=== PATIENT | male | born 1965 | race Two or more races ===

== ENCOUNTER 2020-07-05 20:11 | Emergency (ER) | payer OTHER ==
[~2020-07-05] VITALS: Ht 185.4 cm; Wt 68.0 kg
[2020-07-05 21:33] LABS: BILIRUBIN,URINE NEGATIVE (NEGATIVE); COLOR,URINE YELLOW (YELLOW); LEUKOCYTE ESTERASE ,URINE NEGATIVE (NEGATIVE); NITRITE, URINE NEGATIVE (NEGATIVE); PROTEIN,URINE NEGATIVE (NEGATIVE); UGLUCOSE NEGATIVE (NEGATIVE)
[2020-07-05 22:03] LABS: CALCIUM, SERUM 8.6 mg/dL (8.5-10.1); CARBON DIOXIDE 31 mmol/L (21-32); CHLORIDE 105 mmol/L (98-107); CREATININE 1.2 mg/dL (0.6-1.3); GLUCOSE 74 mg/dL (74-106); POTASSIUM 4.2 mmol/L (3.5-5.1); SODIUM SERUM 142 mmol/L (136-145); UREA NITROGEN, BLOOD 21 mg/dL (7-18)
[2020-07-05 22:08] LABS: ALANINE AMINOTRANSFERASE 29 U/L (12-78); ALBUMIN 3.6 g/dL (3.4-5.0); ALKALINE PHOSPHATASE 123 U/L (46-116); ASPARTATE AMINOTRANSFERASE 27 U/L (15-37); BILIRUBIN,DIRECT 0.1 mg/dL (0.0-0.2); BILIRUBIN,TOTAL 0.5 mg/dL (0.2-1.0); TOTAL PROTEIN, SERUM 7.4 g/dL (6.4-8.2)
[2020-07-05 22:09] LABS: ACETAMINOPHEN 0 ug/ml (10-30); ALCOHOL, BLOOD < 3 mg/dL (0-0)
[2020-07-05 22:11] LABS: BACTERIA,URINE Few /HPF (None Seen); MUCUS,URINE Few /LPF (None Seen); RBC,URINE 0-2 /HPF (0-2); SQUAMOUS EPITHELIAL CELL,UR Few /HPF (None Seen); URINE AMORPHOUS URATE Few /HPF (None Seen)
[2020-07-05 22:21] LABS: BASOPHILS % (AUTO) 0.3 % (0.0-2.0); EOSINOPHILS % (AUTO) 1.2 % (0.0-6.0); HEMATOCRIT 43 % (39-51); HEMOGLOBIN 13.9 g/dL (13.5-17.5); LYMPHOCYTES # (AUTO) 3.1 /CMM (0.8-4.8); LYMPHOCYTES % (AUTO) 32.7 % (20.0-44.0); MEAN CORPUSCULAR HGB CONC 33 g/dl (31.0-36.0); MEAN CORPUSCULAR VOLUME 96 fL (80-96); MONOCYTES % (AUTO) 10.2 % (2.0-12.0); NEUTROPHILS # (AUTO) 5.2 /CMM (1.8-8.9); NEUTROPHILS % (AUTO) 55.6 % (43.0-81.0); PLATELET COUNT (AUTO) 202 /CMM (150-450); RED BLOOD CELL COUNT(AUTO) 4.46 MIL/uL (4.5-6.0); WHITE BLOOD COUNT (AUTO) 9.4 K/uL (4.3-11.0)
[2020-07-06 04:16] VITALS: BP 125/73
== END 2020-07-06 04:17 | disposition home or self-care (01) ==
LOC: ER 20:34
DX: R45.851 Suicidal ideations (principal); R45.850 Homicidal ideations; Z59.0 Homelessness; I10 Essential (primary) hypertension; G40.909 Epilepsy, unspecified, not intractable, without status epilepticus; Z91.14 Patient's other noncompliance with medication regimen; F25.0 Schizoaffective disorder, bipolar type
CPT/HCPCS: 36415; 80048; 80076; 80299; 80307; 80320; 81001; 85025; 87086; 87426; 99285; C9803; G0480

== ENCOUNTER 2024-06-27 10:14 | Inpatient (IN) | payer MEDICAID, OTHER ==
[~2024-06-27] VITALS: Ht 180.3 cm; Wt 56.2 kg
[2024-06-27 10:46] LABS: HEMOGLOBIN 13.7 g/dL (13.5-17.5); WHITE BLOOD COUNT (AUTO) 15.8 K/uL (4.3-11.0)
[2024-06-27 10:56] LABS: SERUM AMMONIA 17 umol/L (11-32)
[2024-06-27 11:02] LABS: ALANINE AMINOTRANSFERASE 66 U/L (12-78); ALBUMIN 4.3 g/dL (3.4-5.0); ALKALINE PHOSPHATASE 118 U/L (46-116); ASPARTATE AMINOTRANSFERASE 58 U/L (15-37); BILIRUBIN,DIRECT 0.2 mg/dL (0.0-0.2); BILIRUBIN,TOTAL 0.5 mg/dL (0.2-1.0); CALCIUM, SERUM 9.9 mg/dL (8.5-10.1); CARBON DIOXIDE 26 mmol/L (21-32); CHLORIDE 106 mmol/L (98-107); CREATININE 1.2 mg/dL (0.6-1.3); GLUCOSE 80 mg/dL (74-106); POTASSIUM 4.4 mmol/L (3.5-5.1); SALICYLATE 4.9 mg/dL (2.8-20.0); SODIUM SERUM 140 mmol/L (136-145); TOTAL PROTEIN, SERUM 7.9 g/dL (6.4-8.2); UREA NITROGEN, BLOOD 23 mg/dL (7-18)
[2024-06-27 11:08] LABS: BASOPHILS % (AUTO) 0.3 % (0.0-2.0); HEMATOCRIT 41 % (39-51); LYMPHOCYTES # (AUTO) 0.8 K/uL (0.8-4.8); LYMPHOCYTES % (AUTO) 4.8 % (20.0-44.0); MEAN CORPUSCULAR HEMOGLOBIN 34 PG (26.0-33.0); MEAN CORPUSCULAR HGB CONC 33 g/dl (31.0-36.0); MEAN CORPUSCULAR VOLUME 101 fL (80-96); MONOCYTES # (AUTO) 1.4 K/uL (0.1-1.30); MONOCYTES % (AUTO) 8.9 % (2.0-12.0); NEUTROPHILS # (AUTO) 13.6 K/uL (1.8-8.9); PLATELET COUNT (AUTO) 153 K/uL (150-450); RED BLOOD CELL COUNT(AUTO) 4.08 MIL/uL (4.5-6.0); RED CELL DISTRIBUTION WIDTH 15.1 % (11.5-15.0)
[2024-06-27 11:15] LABS: INR 1.05 (0.91-1.10); PROTHROMBIN TIME 11.1 SECS (9.2-11.1)
[2024-06-27 11:23] LABS: LACTIC ACID 2.6 mmol/L (0.4-2.0)
[2024-06-27 11:27] LABS: ACETAMINOPHEN <10 ug/ml (10-30); ALCOHOL, BLOOD < 3 mg/dL (0-10)
[2024-06-27 11:48] LABS: APPEARANCE,URINE CLEAR (CLEAR); BILIRUBIN,URINE NEGATIVE (NEGATIVE); BLOOD, URINE NEGATIVE Ery/uL (NEGATIVE); COLOR,URINE YELLOW (YELLOW); KETONES,URINE NEGATIVE (NEGATIVE); LEUKOCYTE ESTERASE ,URINE NEGATIVE (NEGATIVE); NITRITE, URINE NEGATIVE (NEGATIVE); PROTEIN,URINE 2+ mg/dl (NEGATIVE); UGLUCOSE NEGATIVE (NEGATIVE); UROBILINOGEN,URINE 0.2 EU/dL (0.2)
[2024-06-27] MEDS: DEXTROSE 10% IN WATER 250 ML BAG IV ONE (11:57)
[2024-06-27 12:02] LABS: AMPHETAMINE, URINE NEGATIVE (NEGATIVE); BARBITURATE, URINE NEGATIVE (NEGATIVE); BENZODIAZEPINE, URINE NEGATIVE (NEGATIVE); COCCAINE, URINE NEGATIVE (NEGATIVE); OPIATE, URINE NEGATIVE (NEGATIVE); PHENCYCLIDINE SCREEN,URINE NEGATIVE (NEGATIVE)
[2024-06-27] MEDS: IV NS 0.9% 1,000 ML BAG IV ONE (13:04)
[2024-06-27] MEDS: CEFEPIME 1 GM in IV D5W 50 ML IV ONE (13:04)
[2024-06-27 13:09] LABS: CANNABINOID, URINE POSITIVE (NEGATIVE)
[2024-06-27] MEDS: VANCOMYCIN 1 GM in IV D5W 250 ML IV ONE (13:30)
[2024-06-27 14:52] LABS: ADD URINE CULTURE YES; BACTERIA,URINE 1+ /HPF (None Seen); RBC,URINE 0-2 /HPF (0-2); SQUAMOUS EPITHELIAL CELL,UR 0-2 /HPF (None Seen); WBC,URINE NONE SEEN /HPF (0-3)
[2024-06-27] MEDS ORDERED: MAG HYDROX/AL HYDROX/SIMETH 30 ML UDC PO PRN (15:00)
[2024-06-27] MEDS ORDERED: ENOXAPARIN SODIUM 40 MG/0.4 ML DISP.SYRIN SQ SCH (15:00)
[2024-06-27] MEDS ORDERED: ONDANSETRON HCL/PF 4 MG/2 ML VIAL IVP PRN (15:00)
[2024-06-27] MEDS ORDERED: Z GUARD REMEDY 4 OZ OINT TP PRN (15:00)
[2024-06-27] MEDS ORDERED: MAGNESIUM HYDROXIDE 30 ML UDC PO PRN (15:00)
[2024-06-27] MEDS: ENOXAPARIN SODIUM 60 MG/0.6 ML DISP.SYRIN SQ ONE (15:00)
[2024-06-27 16:00] VITALS: BP 111/61; TEMP 97.9; O2SAT 93
[2024-06-27] MEDS: IV 1/2NS 1000 ML 1,000 ML IV PRN (16:29)
[2024-06-27] MEDS: ASPIRIN EC 325 MG TABLET.DR PO ONE (16:48)
[2024-06-27] MEDS: CEFTRIAXONE 1 G in IV D5W 50 ML IV SCH (19:01)
[2024-06-27 20:00] VITALS: BP 118/86; TEMP 97.7; O2SAT 96
[2024-06-28] VITALS: BP 112/79; TEMP 97.9; O2SAT 96
[2024-06-28] MEDS ORDERED: CEFEPIME 2 GM in IV D5W 100 ML IV SCH (01:00)
[2024-06-28] MEDS: VANCOMYCIN 750 MG in IV D5W 250 ML IV SCH (01:58)
[2024-06-28] MEDS: ENOXAPARIN SODIUM 60 MG/0.6 ML DISP.SYRIN SQ SCH (03:03)
[2024-06-28 04:00] VITALS: BP 126/78; TEMP 98.2; O2SAT 100
[2024-06-28] MEDS: PANTOPRAZOLE 40 MG TABLET.DR PO SCH (07:21)
[2024-06-28 07:27] LABS: BASOPHILS % (AUTO) 0.2 % (0.0-2.0); HEMATOCRIT 35 % (39-51); HEMOGLOBIN 11.8 g/dL (13.5-17.5); LYMPHOCYTES # (AUTO) 1.9 K/uL (0.8-4.8); LYMPHOCYTES % (AUTO) 15.3 % (20.0-44.0); MEAN CORPUSCULAR HEMOGLOBIN 34 PG (26.0-33.0); MEAN CORPUSCULAR HGB CONC 34 g/dl (31.0-36.0); MEAN CORPUSCULAR VOLUME 100 fL (80-96); MONOCYTES # (AUTO) 0.9 K/uL (0.1-1.30); NEUTROPHILS # (AUTO) 9.9 K/uL (1.8-8.9); NEUTROPHILS % (AUTO) 77.5 % (43.0-81.0); PLATELET COUNT (AUTO) 113 K/uL (150-450); RED BLOOD CELL COUNT(AUTO) 3.45 MIL/uL (4.5-6.0); RED CELL DISTRIBUTION WIDTH 14.5 % (11.5-15.0); WHITE BLOOD COUNT (AUTO) 12.7 K/uL (4.3-11.0)
[2024-06-28 07:30] VITALS: BP 117/71; TEMP 97.5; O2SAT 96
[2024-06-28 07:38] LABS: CALCIUM, SERUM 8.8 mg/dL (8.5-10.1); CREATININE 0.9 mg/dL (0.6-1.3); MAGNESIUM 1.8 mg/dL (1.8-2.4); PHOSPHORUS 2.3 mg/dL (2.5-4.9); POTASSIUM 3.5 mmol/L (3.5-5.1)
[2024-06-28 08:04] LABS: THYROID STIMULATING HORMONE 1.76 uIU/mL (0.358-3.74)
[2024-06-28] MEDS: ASPIRIN 81 MG TAB.CHEW PO SCH (08:07)
[2024-06-28] MEDS: VANCOMYCIN 1 GM in IV D5W 250ml IV SCH (15:13)
[2024-06-28] MEDS: K PHOS NEUTRAL 250 MG TABLET PO ONE (15:13)
[2024-06-28 16:00] VITALS: BP 125/82; TEMP 98.2; O2SAT 100
[2024-06-28 21:01] VITALS: BP 133/84; TEMP 98.1; O2SAT 97
[2024-06-29 07:30] VITALS: BP 169/93; TEMP 98.1; O2SAT 99
[2024-06-29 07:57] LABS: BASOPHILS % (AUTO) 0.1 % (0.0-2.0); EOSINOPHILS % (AUTO) 0.1 % (0.0-6.0); HEMATOCRIT 39 % (39-51); LYMPHOCYTES # (AUTO) 1.6 K/uL (0.8-4.8); LYMPHOCYTES % (AUTO) 16.2 % (20.0-44.0); MEAN CORPUSCULAR HEMOGLOBIN 34 PG (26.0-33.0); MEAN CORPUSCULAR HGB CONC 34 g/dl (31.0-36.0); MEAN CORPUSCULAR VOLUME 100 fL (80-96); MONOCYTES # (AUTO) 0.8 K/uL (0.1-1.30); MONOCYTES % (AUTO) 7.8 % (2.0-12.0); NEUTROPHILS # (AUTO) 7.7 K/uL (1.8-8.9); NEUTROPHILS % (AUTO) 75.8 % (43.0-81.0); PLATELET COUNT (AUTO) 116 K/uL (150-450); RED BLOOD CELL COUNT(AUTO) 3.86 MIL/uL (4.5-6.0); RED CELL DISTRIBUTION WIDTH 14.4 % (11.5-15.0); WHITE BLOOD COUNT (AUTO) 10.1 K/uL (4.3-11.0)
[2024-06-29 08:05] LABS: CALCIUM, SERUM 8.9 mg/dL (8.5-10.1); CREATININE 0.9 mg/dL (0.6-1.3); MAGNESIUM 1.8 mg/dL (1.8-2.4); PHOSPHORUS 3.2 mg/dL (2.5-4.9); POTASSIUM 3.6 mmol/L (3.5-5.1)
[2024-06-29 15:44] VITALS: BP 164/90; TEMP 98.1; O2SAT 99
[2024-06-29 20:00] VITALS: BP 170/95; TEMP 99; O2SAT 98
[2024-06-29] MEDS: hydrALAZINE HCL IV 20 MG VIAL IV PRN (20:33)
[2024-06-29] MEDS: ZOLPIDEM TARTRATE 5 MG TABLET PO PRN (22:37)
[2024-06-30] VITALS: BP 135/90; TEMP 98.4; O2SAT 97
[2024-06-30 01:36] LABS: BASOPHILS % (AUTO) 0.3 % (0.0-2.0); HEMATOCRIT 38 % (39-51); HEMOGLOBIN 12.8 g/dL (13.5-17.5); LYMPHOCYTES % (AUTO) 8.4 % (20.0-44.0); MEAN CORPUSCULAR HEMOGLOBIN 34 PG (26.0-33.0); MEAN CORPUSCULAR HGB CONC 34 g/dl (31.0-36.0); MEAN CORPUSCULAR VOLUME 100 fL (80-96); MONOCYTES # (AUTO) 0.9 K/uL (0.1-1.30); MONOCYTES % (AUTO) 7.4 % (2.0-12.0); NEUTROPHILS # (AUTO) 10.4 K/uL (1.8-8.9); NEUTROPHILS % (AUTO) 83.9 % (43.0-81.0); PLATELET COUNT (AUTO) 132 K/uL (150-450); RED BLOOD CELL COUNT(AUTO) 3.81 MIL/uL (4.5-6.0); RED CELL DISTRIBUTION WIDTH 14.6 % (11.5-15.0); WHITE BLOOD COUNT (AUTO) 12.4 K/uL (4.3-11.0)
[2024-06-30 01:50] LABS: CALCIUM, SERUM 8.8 mg/dL (8.5-10.1); CREATININE 0.9 mg/dL (0.6-1.3); MAGNESIUM 1.7 mg/dL (1.8-2.4); PHOSPHORUS 3.4 mg/dL (2.5-4.9); POTASSIUM 3.6 mmol/L (3.5-5.1)
[2024-06-30 02:25] LABS: FOLIC ACID 4.7 ng/mL (>3.0)
[2024-06-30 05:00] VITALS: BP 145/80; TEMP 98.2; O2SAT 99
[2024-06-30] MEDS: ACETAMINOPHEN 325 MG TABLET PO PRN (05:07)
[2024-06-30] MEDS: ENSURE ENLIVE 237 ML LIQUID (VANILLA) PO SCH (08:16)
[2024-06-30] MEDS: METOPROLOL TARTRATE 50 MG TABLET PO SCH (09:44)
[2024-06-30] MEDS: MAGNESIUM OXIDE 400 MG TABLET PO ONE (10:45)
[2024-06-30] MEDS: LORAZEPAM INJ 2 MG/ML VIAL IM PRN (12:06)
[2024-06-30] MEDS: ENOXAPARIN SODIUM 40 MG/0.4 ML DISP.SYRIN SQ SCH (15:06)
[2024-06-30 16:00] VITALS: BP 165/94; TEMP 98.2; O2SAT 97
[2024-06-30 20:00] VITALS: BP 150/90; TEMP 97.5; O2SAT 95
[2024-07-01] VITALS: BP 138/84; TEMP 97.7; O2SAT 99
[2024-07-01 04:00] VITALS: BP 147/78; TEMP 98.1; O2SAT 98
[2024-07-01 07:32] LABS: BASOPHILS % (AUTO) 0.3 % (0.0-2.0); EOSINOPHILS % (AUTO) 0.1 % (0.0-6.0); HEMATOCRIT 33 % (39-51); HEMOGLOBIN 11.4 g/dL (13.5-17.5); LYMPHOCYTES # (AUTO) 2.5 K/uL (0.8-4.8); LYMPHOCYTES % (AUTO) 19.9 % (20.0-44.0); MEAN CORPUSCULAR HEMOGLOBIN 35 PG (26.0-33.0); MEAN CORPUSCULAR HGB CONC 35 g/dl (31.0-36.0); MEAN CORPUSCULAR VOLUME 100 fL (80-96); MONOCYTES # (AUTO) 1.2 K/uL (0.1-1.30); MONOCYTES % (AUTO) 9.5 % (2.0-12.0); NEUTROPHILS # (AUTO) 8.8 K/uL (1.8-8.9); NEUTROPHILS % (AUTO) 70.2 % (43.0-81.0); PLATELET COUNT (AUTO) 130 K/uL (150-450); RED BLOOD CELL COUNT(AUTO) 3.31 MIL/uL (4.5-6.0); RED CELL DISTRIBUTION WIDTH 13.8 % (11.5-15.0); WHITE BLOOD COUNT (AUTO) 12.6 K/uL (4.3-11.0)
[2024-07-01 08:12] LABS: CALCIUM, SERUM 9.3 mg/dL (8.5-10.1); CREATININE 0.7 mg/dL (0.6-1.3); PHOSPHORUS 3.3 mg/dL (2.5-4.9)
[2024-07-01] MEDS: VALSARTAN 80 MG TABLET PO SCH (09:30)
[2024-07-01] MEDS ORDERED: QUETIAPINE FUMARATE 25 MG TABLET PO PRN (10:30)
[2024-07-01] MEDS: LEVETIRACETAM (500MG) 500 MG in IV NS 0.9% 100 ML IV SCH (11:20)
[2024-07-01 12:00] VITALS: BP 152/98; TEMP 97.7; O2SAT 99
[2024-07-01 16:00] VITALS: BP 144/89; TEMP 97.3; O2SAT 96
[2024-07-01 20:00] VITALS: BP 150/90; TEMP 97.5; O2SAT 98
[2024-07-02] VITALS: BP 118/81; TEMP 97.5; O2SAT 97
[2024-07-02 04:00] VITALS: BP 136/87; TEMP 97.7; O2SAT 97
[2024-07-02 07:30] VITALS: BP 134/86; TEMP 98.2; O2SAT 100
[2024-07-02 07:33] LABS: BASOPHILS % (AUTO) 0.2 % (0.0-2.0); EOSINOPHILS # (AUTO) 0.1 K/uL (0.0-0.7); EOSINOPHILS % (AUTO) 0.6 % (0.0-6.0); HEMATOCRIT 30 % (39-51); HEMOGLOBIN 10.2 g/dL (13.5-17.5); LYMPHOCYTES # (AUTO) 2.2 K/uL (0.8-4.8); LYMPHOCYTES % (AUTO) 22.3 % (20.0-44.0); MEAN CORPUSCULAR HEMOGLOBIN 34 PG (26.0-33.0); MEAN CORPUSCULAR HGB CONC 34 g/dl (31.0-36.0); MEAN CORPUSCULAR VOLUME 100 fL (80-96); MONOCYTES # (AUTO) 0.9 K/uL (0.1-1.30); MONOCYTES % (AUTO) 9.2 % (2.0-12.0); NEUTROPHILS # (AUTO) 6.8 K/uL (1.8-8.9); NEUTROPHILS % (AUTO) 67.7 % (43.0-81.0); PLATELET COUNT (AUTO) 140 K/uL (150-450); RED BLOOD CELL COUNT(AUTO) 3.03 MIL/uL (4.5-6.0)
[2024-07-02 08:07] LABS: CALCIUM, SERUM 9.1 mg/dL (8.5-10.1); CREATININE 0.7 mg/dL (0.6-1.3)
[2024-07-02] MEDS: POTASSIUM CHLORIDE 20 MEQ TAB.PRT.SR PO ONE (10:28)
[2024-07-02 11:26] LABS: POTASSIUM 3.6 mmol/L (3.5-5.1)
[2024-07-02 16:00] VITALS: BP 140/79; TEMP 97.5; O2SAT 100
[2024-07-02 20:00] VITALS: BP 112/73; TEMP 98.2; O2SAT 96
[2024-07-03] VITALS: BP 104/71; TEMP 98.1; O2SAT 98
[2024-07-03 03:59] VITALS: BP 107/57; TEMP 98; O2SAT 98
[2024-07-03 04:00] VITALS: BP 107/57; TEMP 98; O2SAT 98
[2024-07-03 06:46] LABS: CALCIUM, SERUM 8.7 mg/dL (8.5-10.1); CREATININE 0.8 mg/dL (0.6-1.3); POTASSIUM 4.6 mmol/L (3.5-5.1)
[2024-07-03 06:52] LABS: BASOPHILS % (AUTO) 0.3 % (0.0-2.0); EOSINOPHILS # (AUTO) 0.1 K/uL (0.0-0.7); EOSINOPHILS % (AUTO) 1.6 % (0.0-6.0); HEMATOCRIT 29 % (39-51); HEMOGLOBIN 9.6 g/dL (13.5-17.5); LYMPHOCYTES # (AUTO) 1.8 K/uL (0.8-4.8); LYMPHOCYTES % (AUTO) 22.1 % (20.0-44.0); MEAN CORPUSCULAR HEMOGLOBIN 34 PG (26.0-33.0); MEAN CORPUSCULAR HGB CONC 34 g/dl (31.0-36.0); MEAN CORPUSCULAR VOLUME 101 fL (80-96); MONOCYTES # (AUTO) 0.9 K/uL (0.1-1.30); MONOCYTES % (AUTO) 10.9 % (2.0-12.0); NEUTROPHILS # (AUTO) 5.4 K/uL (1.8-8.9); NEUTROPHILS % (AUTO) 65.1 % (43.0-81.0); PLATELET COUNT (AUTO) 164 K/uL (150-450); RED BLOOD CELL COUNT(AUTO) 2.84 MIL/uL (4.5-6.0); RED CELL DISTRIBUTION WIDTH 14.2 % (11.5-15.0); WHITE BLOOD COUNT (AUTO) 8.4 K/uL (4.3-11.0)
[2024-07-03 08:37] VITALS: BP 109/67; TEMP 97.5; O2SAT 97
[2024-07-03] MEDS ORDERED: VALS80TA31 PO (08:54)
[2024-07-03] MEDS ORDERED: ACET325T53 PO (08:54)
[2024-07-03] MEDS ORDERED: METO50TA16 PO (08:54)
[2024-07-03] MEDS ORDERED: Quetiapine Fumarate PO (08:54)
[2024-07-03] MEDS ORDERED: LEVO500T90 PO (08:54)
[2024-07-03] MEDS ORDERED: ASPI-1169 PO (08:54)
[2024-07-03] MEDS ORDERED: LEVE500T9 PO (08:54)
[2024-07-03] MEDS: LEVETIRACETAM (250 MG) 250 MG TABLET PO SCH (10:00)
== END 2024-07-03 16:03 | disposition home health service (06) | DRG 53 ==
LOC: ER 10:20 → TELE 12:36
PROVIDERS: ADMIT Student in an Organized Health Care Education/Training Program; ATTEND Internal Medicine
DX: G40.909 Epilepsy, unspecified, not intractable, without status epilepticus (principal); I21.A1 Myocardial infarction type 2; G92.8 Other toxic encephalopathy; R64 Cachexia; F29 Unspecified psychosis not due to a substance or known physiological condition; E86.0 Dehydration; F20.9 Schizophrenia, unspecified; F31.9 Bipolar disorder, unspecified; F39 Unspecified mood [affective] disorder; Z68.1 Body mass index [BMI] 19.9 or less, adult
CPT/HCPCS: 36415; 70450-TC; 71045-TC; 80048-TC; 80061-TC; 80076-TC; 80202-TC; 81001; 82140-TC; 82607-TC; 82803-TC; 82962-TC; 83605-TC; 83735-TC; 83921; 84100-TC; 84425; 84443-TC; 84484-TC; 85025-TC; 85730-TC; 87040-TC; 87081-TC; 87086-TC; 92526; 92611-TC; 93307-TC; 95819-TC; 97110-TC; 97112-TC; 97116-TC; 97530-TC; A4223; G0378; G0480; J0360; J0692; J0696; J1650; J1953; J2060; J3370; J3371; J3490; J7030; J7040; J7060